=== PATIENT | female | born 1990 | race Hispanic/Latino ===

== ENCOUNTER 2022-05-06 11:15 | Emergency (ER) | payer MEDICARE ==
[~2022-05-06] VITALS: Ht 149.9 cm; Wt 68.0 kg
[2022-05-06] MEDS ORDERED: METHOCARBAMOL750 MG PO (11:50)
[2022-05-06] MEDS ORDERED: ANAPROX DS550 MG PEG (11:50)
[2022-05-06] MEDS ORDERED: MEDROL4 M2 PO (11:50)
== END 2022-05-06 12:00 | disposition home or self-care (01) ==
LOC: ER 11:19
DX: M79.622 Pain in left upper arm (principal); M54.12 Radiculopathy, cervical region; F90.9 Attention-deficit hyperactivity disorder, unspecified type
CPT/HCPCS: 99282